=== PATIENT | male | born 1985 | race Caucasian/White ===

== ENCOUNTER 2018-09-19 12:23 | Emergency (ER) | payer BC ==
[~2018-09-19] VITALS: Ht 182.9 cm; Wt 99.8 kg
[2018-09-19 13:45] LABS: BASO # 0.1 x10^3/uL (0.0-0.2); BASO % 1 % (0-3); EOS # 0.2 x10^3/uL (0.0-0.7); EOS % 3 % (0-3); HEMATOCRIT 44.1 % (39.0-53.0); HEMOGLOBIN 14.8 g/dL (13.0-17.5); LYMPH # 2.8 x10^3/uL (1.0-4.8); LYMPH % 40 % (24-48); MEAN CORPUSCULAR HEMOGLOBIN 30 pg (25-35); MEAN CORPUSCULAR HGB CONC 33 g/dL (31-37); MEAN CORPUSCULAR VOLUME 91 fL (79-100); MONO # 0.5 x10^3/uL (0.0-1.1); MONO % 7 % (0-9); NEUT # 3.5 x10^3uL (1.8-7.7); NEUT % 49 % (31-73); PLATELET COUNT 214 x10^3/uL (140-400); RED BLOOD COUNT 4.85 x10^6/uL (4.30-5.70); RED CELL DISTRIBUTION WIDTH 13.9 % (11.5-14.5)
[2018-09-19 13:56] LABS: CALCIUM 8.4 mg/dL (8.5-10.1); CREATININE 1.3 mg/dL (0.7-1.3); GFR 63.2; POTASSIUM 3.9 mmol/L (3.5-5.1)
[2018-09-19] MEDS ORDERED: IOHEXOL 300 MG/ML 100ML VIAL. IV ONE (14:15)
[2018-09-19] MEDS ORDERED: CONTRAST GIVEN. MC PRN (14:15)
[2018-09-19 14:18] LABS: ALBUMIN 3.9 g/dL (3.4-5.0); ALBUMIN/GLOBULIN RATIO 1.3 (1.0-1.7); TOTAL BILIRUBIN 0.3 mg/dL (0.2-1.0)
--- NOTE | 2018-09-19 14:57 | RAD ---
PQRS Compliance statement: One or more of the following individualized dose reduction techniques were utilized for this examination: 1. Automated exposure control. 2. Adjustment of the mA and/or kV according to patient size. 3. Use of iterative reconstruction technique. Indication:globus sensation TECHNIQUE: CT of the neck soft tissue with IV contrast with multiplanar reformats. COMPARISON: None FINDINGS: Visualized sections through the brain and orbits are within normal limits. The nasopharynx, oropharynx and hypopharynx are within normal limits. Epiglottis is not thickened. Nodular soft tissue is seen in the vallecula. Adenoids are slightly hypertrophic measuring 1.6 mm in thickness. No enlarged deep cervical adenopathy. The submandibular glands, parotid glands and thyroid are within normal limits. Superior mediastinum within normal limits. The major neck vasculature is patent. Clear lung bases. Trachea is patent. No suspicious bony lesion. IMPRESSION: 1. Nodular soft tissue in the valleculae may represent prominent soft tissue. 2. Mild hypertrophic adenoids. 3. No enlarged cervical lymph nodes or apparent mass. Electronically signed by: Jose Madera DO (09/19/2018 2:54 PM) [facility]
[2018-09-19 15:30] VITALS: BP 135/89
--- NOTE | 2018-09-19 15:34 | PHYS DOC ---
Past Medical History Past Medical History: No Pertinent History Past Surgical History: Tonsillectomy, Other Additional Past Surgical Histo: LEFT SHOULDER Alcohol Use: Occasionally Drug Use: Marijuana Adult General Chief Complaint Chief Complaint: OTHER COMPLAINTS HPI HPI Patient is a 32 year old male who presents with a feeling of a foreign body in his throat. The patient states the symptoms been ongoing for a little over 2 months. The patient was sent for an ultrasound by his primary care provider which was negative for a thyroid nodule. He states his symptoms have not relieved. He is able to handle his own secretions. He denies night sweats, weight loss or fatigue. Review of Systems Review of Systems Constitutional: Denies fever or chills [] Eyes: Denies change in visual acuity, redness, or eye pain [] HENT: See history of present illness Respiratory: Denies cough or shortness of breath [] Cardiovascular: No additional information not addressed in HPI [] GI: Denies abdominal pain, nausea, vomiting, bloody stools or diarrhea [] : Denies dysuria or hematuria [] Musculoskeletal: Denies back pain or joint pain [] Integument: Denies rash or skin lesions [] Neurologic: Denies headache, focal weakness or sensory changes [] Endocrine: Denies polyuria or polydipsia [] All other systems were reviewed and found to be within normal limits, except as documented in this note. Current Medications Current Medications Current Medications Medications (Trade) Dose Ordered Sig/Kamran Start Time Stop Time Status Last Admin Dose Admin Info (CONTRAST GIVEN -- Rx MONITORING) 1 each PRN DAILY PRN 09/19/18 14:15 09/19/18 15:53 DC Iohexol (Omnipaque 300 Mg/ml) 70 ml 1X ONCE 09/19/18 14:15 09/19/18 14:16 DC Allergies Allergies Allergies Coded Allergies Type Severity Reaction Last Updated Verified No Known Drug Allergies 09/19/18 No Physical Exam Physical Exam Constitutional: Well developed, well nourished, no acute distress, non-toxic appearance. [] HENT: Normocephalic, atraumatic, bilateral external ears normal, oropharynx moist, no oral exudates, nose normal. [] Eyes: PERRLA, EOMI, conjunctiva normal, no discharge. [] Neck: Normal range of motion, no tenderness, supple, no stridor. [] Cardiovascular:Heart rate regular rhythm, no murmur [] Lungs & Thorax: Bilateral breath sounds clear to auscultation [] Abdomen: Bowel sounds normal, soft, no tenderness, no masses, no pulsatile masses. [] Skin: Warm, dry, no erythema, no rash. [] Back: No tenderness, no CVA tenderness. [] Extremities: No tenderness, no cyanosis, no clubbing, ROM intact, no edema. [] Neurologic: Alert and oriented X 3, normal motor function, normal sensory function, no focal deficits noted. [] Psychologic: Affect normal, judgement normal, mood normal. [] Current Patient Data Vital Signs Vital Signs Date Time Temp Pulse Resp B/P (MAP) Pulse Ox O2 Delivery O2 Flow Rate FiO2 09/19/18 12:38 98.3 72 18 148/93 (111) 98 Room Air 98.3 Lab Values Laboratory Tests Test 09/19/18 13:39 White Blood Count 7.0 x10^3/uL (4.0-11.0) Red Blood Count 4.85 x10^6/uL (4.30-5.70) Hemoglobin 14.8 g/dL (13.0-17.5) Hematocrit 44.1 % (39.0-53.0) Mean Corpuscular Volume 91 fL (79-100) Mean Corpuscular Hemoglobin 30 pg (25-35) Mean Corpuscular Hemoglobin Concent 33 g/dL (31-37) Red Cell Distribution Width 13.9 % (11.5-14.5) Platelet Count 214 x10^3/uL (140-400) Neutrophils (%) (Auto) 49 % (31-73) Lymphocytes (%) (Auto) 40 % (24-48) Monocytes (%) (Auto) 7 % (0-9) Eosinophils (%) (Auto) 3 % (0-3) Basophils (%) (Auto) 1 % (0-3) Neutrophils # (Auto) 3.5 x10^3uL (1.8-7.7) Lymphocytes # (Auto) 2.8 x10^3/uL (1.0-4.8) Monocytes # (Auto) 0.5 x10^3/uL (0.0-1.1) Eosinophils # (Auto) 0.2 x10^3/uL (0.0-0.7) Basophils # (Auto) 0.1 x10^3/uL (0.0-0.2) Sodium Level 141 mmol/L (136-145) Potassium Level 3.9 mmol/L (3.5-5.1) Chloride Level 105 mmol/L (98-107) Carbon Dioxide Level 27 mmol/L (21-32) Anion Gap 9 (6-14) Blood Urea Nitrogen 10 mg/dL (8-26) Creatinine 1.3 mg/dL (0.7-1.3) Estimated GFR (Cockcroft-Gault) 63.2 BUN/Creatinine Ratio 8 (6-20) Glucose Level 88 mg/dL (70-99) Calcium Level 8.4 mg/dL (8.5-10.1) L Total Bilirubin 0.3 mg/dL (0.2-1.0) Aspartate Amino Transferase (AST) 17 U/L (15-37) Alanine Aminotransferase (ALT) 33 U/L (16-63) Alkaline Phosphatase 91 U/L (46-116) Total Protein 7.0 g/dL (6.4-8.2) Albumin 3.9 g/dL (3.4-5.0) Albumin/Globulin Ratio 1.3 (1.0-1.7) Laboratory Tests 09/19/18 13:39 Laboratory Tests 09/19/18 13:39 EKG EKG [] Radiology/Procedures Radiology/Procedures []PATIENT: SHER ERAZOACCOUNT: [id number]#: [id number] : 1985 LOCATION: ER AGE: 32 SEX: M EXAM STATUS: REG ER ORD. PHYSICIAN: SUNNI BYERS APRN REASON: globus sensation PROCEDURE: CT SOFT TISSUE NECK W/CONTRAST PQRS Compliance statement: One or more of the following individualized dose reduction techniques were utilized for this examination: 1. Automated exposure control. 2. Adjustment of the mA and/or kV according to patient size. 3. Use of iterative reconstruction technique. Indication:globus sensation TECHNIQUE: CT of the neck soft tissue with IV contrast with multiplanar reformats. COMPARISON: None FINDINGS: Visualized sections through the brain and orbits are within normal limits. The nasopharynx, oropharynx and hypopharynx are within normal limits. Epiglottis is not thickened. Nodular soft tissue is seen in the vallecula. Adenoids are slightly hypertrophic measuring 1.6 mm in thickness. No enlarged deep cervical adenopathy. The submandibular glands, parotid glands and thyroid are within normal limits. Superior mediastinum within normal limits. The major neck vasculature is patent. Clear lung bases. Trachea is patent. No suspicious bony lesion. IMPRESSION: 1. Nodular soft tissue in the valleculae may represent prominent soft tissue. 2. Mild hypertrophic adenoids. 3. No enlarged cervical lymph nodes or apparent mass. Electronically signed by: Jose Madera DO (09/19/2018 2:54 PM) [facility] DICTATED and SIGNED BY: JOSE MADERA DO DATE: 09/19/18 2224 Course & Med Decision Making Course & Med Decision Making Pertinent Labs and Imaging studies reviewed. (See chart for details) []He patient is to follow-up with a specialist for a scope. He is in agreement with this plan. Dragon Disclaimer Dragon Disclaimer This electronic medical record was generated, in whole or in part, using a voice recognition dictation system. Departure Departure Impression: Primary Impression: Globus sensation Disposition: HOME, SELF-CARE Condition: STABLE Referrals: NO PCP (PCP) BARTOLOME BERMUDEZ MD Patient Instructions: Globus Syndrome Additional Instructions: Follow-up with a GI specialist for a scope. If worsening return to the emergency department. SUNNI BYESR APRN Sep 19, 2018 15:34
== END 2018-09-19 15:53 | disposition home or self-care (01) ==
LOC: ER 12:23
DX: F45.8 Other somatoform disorders (principal); J35.2 Hypertrophy of adenoids; Z90.89 Acquired absence of other organs
CPT/HCPCS: 36415; 70491; 80053; 85025; 99284-25